=== PATIENT | male | born 1950 | race Caucasian/White ===

== ENCOUNTER → 2019-03-31 | Outpatient (CLI) | payer MEDICARE, OTHER ==
--- NOTE | 2019-04-02 07:44 | ECHOF ---
Referral Reason:I10 Essential hypertension; I27.81; Z99.81 MEASUREMENTS -------- HEIGHT: 175.3 cm WEIGHT: 77.1 kg BP: IVSd: 1.0 cm (0.6 - 1.1) LVIDd: 3.1 cm (3.9 - 5.3) LVPWd: 1.2 cm (0.6 - 1.1) IVSs: 1.3 cm LVIDs: 1.8 cm LVPWs: 1.5 cm LAESV Index (A-L): 12.86 ml/m Ao Diam: 3.5 cm (2.0 - 3.7) AV Cusp: 1.6 cm (1.5 - 2.6) LA Diam: 1.5 cm (2.7 - 3.8) MV EXCURSION: 10.325 mm (> 18.000) MV EF SLOPE: 61 mm/s (70 - 150) EPSS: 1.4 cm MV E Pierre: 0.79 m/s MV DecT: 148 ms MV A Pierre: 1.30 m/s MV E/A Ratio: 0.61 AV maxP.45 mmHg AV meanP.27 mmHg AR PHT: 269 ms RAP: 5.00 mmHg RVSP: 27.28 mmHg FINDINGS -------- Sinus rhythm. This was a technically adequate study. The left ventricular size is normal. There is mild concentric left ventricular hypertrophy. Overa ll left ventricular systolic function is low-normal with, an EF between 50 - 55 %. The right ventricle is normal in size. The left atrial size is normal. The right atrial size is normal. Interatrial and interventricular septum intact. Aortic valve is trileaflet and is mildly thickened. There is mild aortic stenosis present. Peak/m tonya gradient across the Aortic Valve is 15.45mmHg / 8.27mmHg. The mitral valve leaflets are mildly thickened. Mild mitral regurgitation is present. Mild tricuspid regurgitation present. The right ventricular systolic pressure, as measured by Doppl er, is 27.28mmHg. There is no pulmonic regurgitation present. The aortic root size is normal. Normal inferior vena cava with normal inspiratory collapse consistent with estimated right atrial pre ssure of 5 mmHg. There is no pericardial effusion. CONCLUSIONS -------- 1. Sinus rhythm. 2. This was a technically adequate study. 3. The left ventricular size is normal. 4. There is mild concentric left ventricular hypertrophy. 5. Overall left ventricular systolic function is low-normal with, an EF between 50 - 55 %. 6. The right ventricle is normal in size. 7. The left atrial size is normal. 8. The right atrial size is normal. 9. Interatrial and interventricular septum intact. 10. Aortic valve is trileaflet and is mildly thickened. 11. There is mild aortic stenosis present. 12. Peak/mean gradient across the Aortic Valve is 15.45mmHg / 8.27mmHg. 13. The mitral valve leaflets are mildly thickened. 14. Mild mitral regurgitation is present. 15. Mild tricuspid regurgitation present. 16. The right ventricular systolic pressure, as measured by Doppler, is 27.28mmHg. 17. There is no pulmonic regurgitation present. 18. The aortic root size is normal. 19. Normal inferior vena cava with normal inspiratory collapse consistent with estimated right atrial pressure of 5 mmHg. 20. There is no pericardial effusion. REMOTE SENSING RESEARCH SCIENTIST: Sylvia Pelayo RDCS
== END | disposition home or self-care (01) ==
LOC: RADECHMAIN 13:34
PROVIDERS: ATTEND Family Medicine
DX: I08.1 Rheumatic disorders of both mitral and tricuspid valves (principal); I11.9 Hypertensive heart disease without heart failure; I27.81 Cor pulmonale (chronic); Z99.81 Dependence on supplemental oxygen
CPT/HCPCS: 93306

== ENCOUNTER 2020-01-30 15:32 | Inpatient (IN) | payer MEDICARE, OTHER ==
[2020-01-30] MEDS ORDERED: ALBUTEROL NEBULIZED 2.5 MG/3 ML INHALATION STA (15:51)
[2020-01-30] MEDS ORDERED: IPRATROPIUM 0.5 MG/2.5 ML NEBU INHALATION STA (15:51)
[2020-01-30] MEDS ORDERED: MAGNESIUM SULFATE-D5W PMX 1 GM in DEXTROSE/WATER 1 100ML.BAG IVPB STA (15:51)
[2020-01-30] MEDS ORDERED: SODIUM CHLORIDE 0.9% 500 ML 500 ML IV STA (15:51)
[2020-01-30] MEDS ORDERED: methylPREDNISolone SOD SUCCI 125 MG/2 ML VIAL IV STA (15:51)
[2020-01-30] MEDS ORDERED: LEVOFLOXACIN 750MG-D5W PMX 750 MG in DEXTROSE/WATER 1 150ML.BAG IVPB STA (15:51)
--- NOTE | 2020-01-30 16:12 | XR ---
EXAMINATION TYPE: XR chest 1V DATE OF EXAM: 01/30/2020 COMPARISON: 01/12/2012 HISTORY: COPD and asthma TECHNIQUE: Single frontal view of the chest is obtained. FINDINGS: Left basilar airspace disease is new from the prior. Pulmonary hyperinflation is seen comp atible with underlying COPD. Patient is rotated shifting the mediastinum to the right. Diffuse osseou s demineralization is present. Chronic density at the right cardiophrenic angle may represent an epic ardial fat pad. IMPRESSION: Reticular left basilar opacity. Correlate for pneumonia.
[2020-01-30 16:21] LABS: Basophils % (A) 0 %; Eosinophils % (A) 0 %; HCT 48.4 % (39.0-53.0); HGB 15.9 gm/dL (13.0-17.5); Lymphocytes # (A) 1.6 k/uL (1.0-4.8); Lymphocytes % (A) 16 %; MCH 29.2 pg (25.0-35.0); MCHC 32.8 g/dL (31.0-37.0); Mean Platelet Volume 7.7; Monocytes # (A) 0.3 k/uL (0-1.0); Monocytes % (A) 3 %; Neutrophils % (A) 79 %; Platelet Count 205 k/uL (150-450); RBC 5.43 m/uL (4.30-5.90); RDW 12.8 % (11.5-15.5); WBC 10.1 k/uL (3.8-10.6)
[2020-01-30 16:23] LABS: ALT 32 U/L (4-49); AST 29 U/L (17-59); African American GFR (CKD) >90 (>60 ml/min/1.73 sqM); Albumin 4.4 g/dL (3.5-5.0); Alkaline Phosphatase 72 U/L (38-126); Anion Gap 7 mmol/L; Blood Urea Nitrogen 25 mg/dL (9-20); Chloride 90 mmol/L (98-107); Glucose 156 mg/dL (74-99); Magnesium 1.6 mg/dL (1.6-2.3); Non-African American GFR(CKD) >90 (>60 ml/min/1.73 sqM); Potassium 3.9 mmol/L (3.5-5.1); Sodium 137 mmol/L (137-145); Total Bilirubin 1.3 mg/dL (0.2-1.3); Total Protein 7.1 g/dL (6.3-8.2)
[2020-01-30 16:25] LABS: Partial Thromboplastin Time 24.2 sec (22.0-30.0)
--- NOTE | 2020-01-30 16:32 | ED ---
General Adult HPI - General Chief complaint: Shortness of Breath Stated complaint: low oxygen Time Seen by Provider: 01/30/20 15:35 Source: patient, RN notes reviewed, old records reviewed Mode of arrival: wheelchair Limitations: no limitations - History of Present Illness Initial comments: This is a 69-year-old male with past medical history significant for end-stage COPD. Patient states over the last week he's been having worsening difficulty breathing. Patient states he thinks she's had a fever but has not taken his temperature. Patient denies any chest pain. Patient states he is coughing but not coughing up much sputum production. Patient states he does not want to be intubated but he will try BiPAP. Patient denies any abdominal pain. Patient denies nausea vomiting. Patient denies any back pain. Patient denies headache patient denies numbness weakness. Patient denies any swelling in the legs or calf tenderness. - Related Data Allergies Allergy/AdvReac Type Severity Reaction Status Date / Time Penicillins Allergy Rash/Hives Verified 01/30/20 15:39 Review of Systems ROS Statement: Those systems with pertinent positive or pertinent negative responses have been documented in the HPI. ROS Other: All systems not noted in ROS Statement are negative. Past Medical History Past Medical History: Asthma, COPD History of Any Multi-Drug Resistant Organisms: None Reported Past Surgical History: Cholecystectomy Past Psychological History: No Psychological Hx Reported Smoking Status: Former smoker Past Alcohol Use History: None Reported Past Drug Use History: None Reported General Exam - General Exam Comments Initial Comments: GENERAL: Patient is well-developed and well-nourished. Patient is nontoxic and well- hydrated and is in no acute distress. Patient's oxygen was in the low 80s when he first arrived ENT: Neck is soft and supple. No significant lymphadenopathy is noted. Oropharynx is clear. Moist mucous membranes. Neck has full range of motion without eliciting any pain. EYES: The sclera were anicteric and conjunctiva were pink and moist. Extraocular movements were intact and pupils were equal round and reactive to light. Eyelids were unremarkable. PULMONARY: Patient is wheezing diffusely and has very poor air movement CARDIOVASCULAR: There is a regular rate and rhythm without any murmurs gallops or rubs. ABDOMEN: Soft and nontender with normal bowel sounds. SKIN: Skin is clear with no lesions or rashes and otherwise unremarkable. NEUROLOGIC: Patient is alert and oriented x3. Cranial nerves II through XII are grossly intact. Motor and sensory are also intact. Normal speech, volume and content. Symmetrical smile. MUSCULOSKELETAL: Normal extremities with adequate strength and full range of motion. No lower e xtremity swelling or edema. No calf tenderness. LYMPHATICS: No significant lymphadenopathy is noted PSYCHIATRIC: Normal psychiatric evaluation. Limitations: no limitations Course Vital Signs 01/30/20 01/30/20 01/30/20 15:33 15:47 15:49 Temperature 99.5 F 98.3 F Pulse Rate 109 H Respiratory 30 H 22 Rate Blood Pressure 154/70 O2 Sat by Pulse 75 L 89 L Oximetry 01/30/20 01/30/20 01/30/20 15:52 16:00 16:31 Temperature Pulse Rate 112 H 105 H Respiratory Rate Blood Pressure O2 Sat by Pulse 95 Oximetry Medical Decision Making - Medical Decision Making EKG shows sinus tachycardia 114 bpm MN interval 142 QRS is 76 QT interval 324 QTC is 446 per patient's EKG shows no ST segment elevation or depression. Chest x-ray shows no acute abnormality. Patient did receive Levaquin in the emergency department prophylactically. Patient got 3 breathing treatments steroids in the emergency department as well as placed on BiPAP. I went back into reevaluate the patient he was doing considerably better his oxygenation was between 9495%. - Lab Data Result diagrams: 01/30/20 15:57 01/30/20 15:57 Lab Results 01/30/20 01/30/20 01/30/20 Range/Units 15:57 15:57 15:57 WBC 10.1 (3.8-10.6) k/uL RBC 5.43 (4.30-5.90) m/uL Hgb 15.9 (13.0-17.5) gm/dL Hct 48.4 (39.0-53.0) % MCV 89.0 (80.0-100.0) fL MCH 29.2 (25.0-35.0) pg MCHC 32.8 (31.0-37.0) g/dL RDW 12.8 (11.5-15.5) % Plt Count 205 (150-450) k/uL Neutrophils % 79 % Lymphocytes % 16 % Monocytes % 3 % Eosinophils % 0 % Basophils % 0 % Neutrophils # 8.0 H (1.3-7.7) k/uL Lymphocytes # 1.6 (1.0-4.8) k/uL Monocytes # 0.3 (0-1.0) k/uL Eosinophils # 0.0 (0-0.7) k/uL Basophils # 0.0 (0-0.2) k/uL PT 10.0 (9.0-12.0) sec INR 1.0 (<1.2) APTT 24.2 (22.0-30.0) sec Sample Site ABG pH (7.35-7.45) ABG pCO2 (35-45) mmHg ABG pO2 (83-108) mmHg ABG HCO3 (21-25) mmol/L ABG Total CO2 (19-24) mmol/L ABG O2 Saturation (94-97) % ABG Base Excess mmol/L Zohaib Test FiO2 % Sodium 137 (137-145) mmol/L Potassium 3.9 (3.5-5.1) mmol/L Chloride 90 L (98-107) mmol/L Carbon Dioxide 40 H (22-30) mmol/L Anion Gap 7 mmol/L BUN 25 H (9-20) mg/dL Creatinine 0.78 (0.66-1.25) mg/dL Est GFR (CKD-EPI)AfAm >90 (>60 ml/min/1.73 sqM) Est GFR (CKD-EPI)NonAf >90 (>60 ml/min/1.73 sqM) Glucose 156 H (74-99) mg/dL Plasma Lactic Acid Gonzalo (0.7-2.0) mmol/L Calcium 9.0 (8.4-10.2) mg/dL Magnesium 1.6 (1.6-2.3) mg/dL Total Bilirubin 1.3 (0.2-1.3) mg/dL AST 29 (17-59) U/L ALT 32 (4-49) U/L Alkaline Phosphatase 72 (38-126) U/L Troponin I (0.000-0.034) ng/mL Total Protein 7.1 (6.3-8.2) g/dL Albumin 4.4 (3.5-5.0) g/dL Influenza Type A RNA (Not Detectd) Influenza Type B (PCR) (Not Detectd) 01/30/20 01/30/20 01/30/20 Range/Units 15:57 15:57 15:57 WBC (3.8-10.6) k/uL RBC (4.30-5.90) m/uL Hgb (13.0-17.5) gm/dL Hct (39.0-53.0) % MCV (80.0-100.0) fL MCH (25.0-35.0) pg MCHC (31.0-37.0) g/dL RDW (11.5-15.5) % Plt Count (150-450) k/uL Neutrophils % % Lymphocytes % % Monocytes % % Eosinophils % % Basophils % % Neutrophils # (1.3-7.7) k/uL Lymphocytes # (1.0-4.8) k/uL Monocytes # (0-1.0) k/uL Eosinophils # (0-0.7) k/uL Basophils # (0-0.2) k/uL PT (9.0-12.0) sec INR (<1.2) APTT (22.0-30.0) sec Sample Site ABG pH (7.35-7.45) ABG pCO2 (35-45) mmHg ABG pO2 (83-108) mmHg ABG HCO3 (21-25) mmol/L ABG Total CO2 (19-24) mmol/L ABG O2 Saturation (94-97) % ABG Base Excess mmol/L Zohaib Test FiO2 % Sodium (137-145) mmol/L Potassium (3.5-5.1) mmol/L Chloride (98-107) mmol/L Carbon Dioxide (22-30) mmol/L Anion Gap mmol/L BUN (9-20) mg/dL Creatinine (0.66-1.25) mg/dL Est GFR (CKD-EPI)AfAm (>60 ml/min/1.73 sqM) Est GFR (CKD-EPI)NonAf (>60 ml/min/1.73 sqM) Glucose (74-99) mg/dL Plasma Lactic Acid Gonzalo 1.3 (0.7-2.0) mmol/L Calcium (8.4-10.2) mg/dL Magnesium (1.6-2.3) mg/dL Total Bilirubin (0.2-1.3) mg/dL AST (17-59) U/L ALT (4-49) U/L Alkaline Phosphatase (38-126) U/L Troponin I <0.012 (0.000-0.034) ng/mL Total Protein (6.3-8.2) g/dL Albumin (3.5-5.0) g/dL Influenza Type A RNA Not Detected (Not Detectd) Influenza Type B (PCR) Not Detected (Not Detectd) 01/30/20 Range/Units 16:46 WBC (3.8-10.6) k/uL RBC (4.30-5.90) m/uL Hgb (13.0-17.5) gm/dL Hct (39.0-53.0) % MCV (80.0-100.0) fL MCH (25.0-35.0) pg MCHC (31.0-37.0) g/dL RDW (11.5-15.5) % Plt Count (150-450) k/uL Neutrophils % % Lymphocytes % % Monocytes % % Eosinophils % % Basophils % % Neutrophils # (1.3-7.7) k/uL Lymphocytes # (1.0-4.8) k/uL Monocytes # (0-1.0) k/uL Eosinophils # (0-0.7) k/uL Basophils # (0-0.2) k/uL PT (9.0-12.0) sec INR (<1.2) APTT (22.0-30.0) sec Sample Site Left Radial ABG pH 7.32 L (7.35-7.45) ABG pCO2 82 H* (35-45) mmHg ABG pO2 102 (83-108) mmHg ABG HCO3 42 H* (21-25) mmol/L ABG Total CO2 45 H (19-24) mmol/L ABG O2 Saturation 97.6 H (94-97) % ABG Base Excess 16.4 mmol/L Zohaib Test Yes FiO2 40 % Sodium (137-145) mmol/L Potassium (3.5-5.1) mmol/L Chloride (98-107) mmol/L Carbon Dioxide (22-30) mmol/L Anion Gap mmol/L BUN (9-20) mg/dL Creatinine (0.66-1.25) mg/dL Est GFR (CKD-EPI)AfAm (>60 ml/min/1.73 sqM) Est GFR (CKD-EPI)NonAf (>60 ml/min/1.73 sqM) Glucose (74-99) mg/dL Plasma Lactic Acid Gonzalo (0.7-2.0) mmol/L Calcium (8.4-10.2) mg/dL Magnesium (1.6-2.3) mg/dL Total Bilirubin (0.2-1.3) mg/dL AST (17-59) U/L ALT (4-49) U/L Alkaline Phosphatase (38-126) U/L Troponin I (0.000-0.034) ng/mL Total Protein (6.3-8.2) g/dL Albumin (3.5-5.0) g/dL Influenza Type A RNA (Not Detectd) Influenza Type B (PCR) (Not Detectd) Critical Care Time Critical Care Time: Yes Total Critical Care Time: 35 Disposition Clinical Impression: Acute exacerbation of chronic obstructive pulmonary disease Disposition: ADMITTED IP TO THIS HOSP Referrals: Brayan Garcia DO [Primary Care Provider] - 1-2 days Time of Disposition: 17:57
[2020-01-30 16:34] LABS: Carbon Dioxide 40 mmol/L (22-30)
[2020-01-30 16:51] LABS: ABG Base Excess 16.4 mmol/L; ABG Oxygen Saturation 97.6 % (94-97); ABG PH 7.32 (7.35-7.45); ABG PO2 102 mmHg (83-108); ABG TCO2 45 mmol/L (19-24); Allen Test Performed? Yes
[2020-01-30 16:54] LABS: ABG HCO3 42 mmol/L (21-25); ABG PCO2 82 mmHg (35-45)
[2020-01-30] MEDS: methylPREDNISolone SOD SUCCI 125 MG/2 ML VIAL IV SCH (18:32)
[2020-01-30] MEDS ORDERED: IPRATROPIUM 0.5 MG/2.5 ML NEBU INHALATION SCH (20:00)
[2020-01-30] MEDS: IPRATROPIUM-ALBUTEROL 3 ML NEB INHALATION SCH (20:12)
[2020-01-30] MEDS: BUDESONIDE 0.5 MG/2 ML NEBU INHALATION SCH (20:12)
[2020-01-31] MEDS: methylPREDNISolone SOD SUCCI 125 MG/2 ML VIAL IV SCH ×4 (00:29→17:44)
[2020-01-31 05:32] LABS: Appearance,Urine Clear (Clear); Bilirubin,Urine Negative (Negative); Blood,Urine Negative (Negative); Color,Urine Yellow; Glucose,Urine (UA) Negative (Negative); Hyaline Casts,Urine 1 /lpf (0-2); Ketones,Urine Trace (Negative); Leukocyte Esterase,Urine Negative (Negative); Mucus,Urine Moderate /hpf; Nitrite,Urine Negative (Negative); PH, Urine 5.5 (5.0-8.0); Protein,Urine 1+ (Negative); Specific Gravity,Urine 1.026 (1.001-1.035); Squamous Epithelial Cell,Urine <1 /hpf (0-4); Urobilinogen,Urine <2.0 mg/dL (<2.0); WBC,Urine 1 /hpf (0-5)
[2020-01-31] MEDS: IPRATROPIUM-ALBUTEROL 3 ML NEB INHALATION SCH ×4 (08:07→19:31)
[2020-01-31] MEDS: BUDESONIDE 0.5 MG/2 ML NEBU INHALATION SCH ×2 (08:07→19:31)
--- NOTE | 2020-01-31 10:42 | P.HPIM ---
History of Present Illness This is a pleasant 69 years old male with past medical history of COPD, former smoker. He is patient of Dr. Garcia. Patient presents with respiratory distress and dyspnea associated with cough associated with yellow Phlegm since Wednesday about 4-5 days ago, he went to see his PCP we'll give him some therapy and he call him on Wednesday we'll start him on Tamiflu and steroids/prednisone. However over the last 1-2 days he kept getting worse so he decided to come to the hospital Patient is not steroid dependent. He denies chest pain. His no smoking currently. He had loose bowel movement yesterday but not today, no abdominal pain or nausea vomiting. No urinary complaints, no headache or weakness or confusion. Patient is afebrile He follows up with Dr. Watts as an outpatient for pulmonary service Patient blood pressure 136/73, heart rate 96, he was tachycardic on admission with heart rate of 109 and a breathing rate of 30 patient is afebrile and he was placed on BiPAP, his oxygen saturation was 75-89%, now is 97% while on BiPAP and oxygen therapy. Labs show an unremarkable CBC, INR, electrolytes and creatinine , liver enzymes, troponin is negative, UA is no suspicious of infection, was that is negative, carbon dioxide is elevated at 40. ABG showing pH of 7.3, pCO2 of 82 and pO2 of 102 EKG showing sinus tachycardia at [address]-T changes and QTC is 446. Chest x-ray showing left basilar opacity suspicious for pneumonia On admission patient was started on Levaquin and Solu-Medrol On admission he was on Tamiflu and prednisone as an outpatient Review of Systems CONSTITUTIONAL: No fever, no malaise, no fatigue. HEENT: No recent visual problems or hearing problems. Denied any sore throat. CARDIOVASCULAR: No orthopnea, PND, no palpitations, no syncope. PULMONARY: no hemoptysis. GASTROINTESTINAL: No diarrhea, no nausea, no vomiting, no abdominal pain. Normoactive bowel sounds. NEUROLOGICAL: No headaches, no weakness, no numbness. HEMATOLOGICAL: Denies any bleeding or petechiae. GENITOURINARY: Denies any burning micturition, frequency, or urgency. MUSCULOSKELETAL/RHEUMATOLOGICAL: Denies any joint pain, swelling, or any muscle pain. ENDOCRINE: Denies any polyuria or polydipsia. Past Medical History Past Medical History: Asthma, COPD History of Any Multi-Drug Resistant Organisms: None Reported Past Surgical History: Cholecystectomy Past Psychological History: No Psychological Hx Reported Smoking Status: Former smoker Past Alcohol Use History: None Reported Past Drug Use History: None Reported Medications and Allergies Home Medications Medication Instructions Recorded Confirmed Type ALPRAZolam [Xanax] 0.5 mg PO TID PRN 01/30/20 01/30/20 History Albuterol Sulfate [Ventolin HFA] 2 puff INHALATION RT-Q6H 01/30/20 01/30/20 History Aspirin EC [Ecotrin Low Dose] 81 mg PO DAILY 01/30/20 01/30/20 History Budesonide [Pulmicort] 0.5 mg INHALATION RT-BID PRN 01/30/20 01/30/20 History Budesonide/Formoterol Fumarate 2 puff INHALATION RT-BID 01/30/20 01/30/20 History [Symbicort 160-4.5 Mcg Inhaler] Cetirizine HCl 10 mg PO DAILY 01/30/20 01/30/20 History Furosemide [Lasix] 20 mg PO SUMOWEFR 01/30/20 01/30/20 History Montelukast [Singulair] 10 mg PO HS 01/30/20 01/30/20 History Omeprazole 20 mg PO HS 01/30/20 01/30/20 History Omeprazole [PriLOSEC] 40 mg PO DAILY 01/30/20 01/30/20 History Oseltamivir [Tamiflu] 75 mg PO BID 01/30/20 01/30/20 History amLODIPine [Norvasc] 10 mg PO DAILY 01/30/20 01/30/20 History predniSONE See Taper PO DAILY 01/30/20 01/30/20 History Allergies Allergy/AdvReac Type Severity Reaction Status Date / Time Penicillins Allergy Rash/Hives Verified 01/30/20 19:16 Physical Exam Vitals: Vital Signs Temp Pulse Pulse Resp BP BP Pulse Ox 01/31/20 08:20 92 01/31/20 08:11 90 95 01/31/20 04:00 96 16 136/73 96 01/30/20 22:12 100 18 137/90 01/30/20 20:49 104 H 01/30/20 20:12 106 H 01/30/20 18:35 99 18 135/94 97 01/30/20 18:00 139/96 01/30/20 17:45 142/93 01/30/20 17:30 146/90 01/30/20 16:31 105 H 01/30/20 16:00 112 H 01/30/20 15:52 95 01/30/20 15:49 89 L 01/30/20 15:47 98.3 F 22 01/30/20 15:33 99.5 F 109 H 30 H 154/70 75 L Intake and Output 01/30/20 01/31/20 01/31/20 22:59 06:59 14:59 Output Total 400 Balance -400 Output: Urine 400 Other: # Voids 0 Weight 80.739 kg 77.6 kg GENERAL: The patient is alert and oriented x3, not in any acute distress. Well developed, well nourished. HEENT: Pupils are round and equally reacting to light. EOMI. No scleral icterus. No conjunctival pallor. Normocephalic, atraumatic. No pharyngeal erythema. No thyromegaly. CARDIOVASCULAR: S1 and S2 present. No murmurs, rubs, or gallops. -PULMONARY: Chest is clear to auscultation, bilateral expiratory wheezing and decreased air entry ABDOMEN: Soft, nontender, nondistended, normoactive bowel sounds. No palpable organomegaly. MUSCULOSKELETAL: No joint swelling or deformity. EXTREMITIES: No cyanosis, clubbing, or pedal edema. NEUROLOGICAL: Gross neurological examination did not reveal any focal deficits. SKIN: No rashes. No petechiae Results CBC & Chem 7: 01/30/20 15:57 01/30/20 15:57 Labs: Abnormal Lab Results - Last 24 Hours (Table) 01/30/20 01/30/20 01/30/20 Range/Units 15:57 15:57 16:46 Neutrophils # 8.0 H (1.3-7.7) k/uL ABG pH 7.32 L (7.35-7.45) ABG pCO2 82 H* (35-45) mmHg ABG HCO3 42 H* (21-25) mmol/L ABG Total CO2 45 H (19-24) mmol/L ABG O2 Saturation 97.6 H (94-97) % Chloride 90 L (98-107) mmol/L Carbon Dioxide 40 H (22-30) mmol/L BUN 25 H (9-20) mg/dL Glucose 156 H (74-99) mg/dL Urine Protein (Negative) Urine Ketones (Negative) Urine Mucus (None) /hpf 01/31/20 Range/Units 05:00 Neutrophils # (1.3-7.7) k/uL ABG pH (7.35-7.45) ABG pCO2 (35-45) mmHg ABG HCO3 (21-25) mmol/L ABG Total CO2 (19-24) mmol/L ABG O2 Saturation (94-97) % Chloride (98-107) mmol/L Carbon Dioxide (22-30) mmol/L BUN (9-20) mg/dL Glucose (74-99) mg/dL Urine Protein 1+ H (Negative) Urine Ketones Trace H (Negative) Urine Mucus Moderate H (None) /hpf Assessment and Plan Assessment: Acute hypoxic hypercapnic respiratory failure Acute COPD exacerbation Left lower lobe pneumonia Acute respiratory acidosis Hypertension Plan: This is a pleasant 69 years old male who presents with COPD, respiratory failure and pneumonia. Continue with BiPAP, continue with antibiotic and steroids, bronchodilators and oxygen therapy. Follow-up culture results. Pulmonary consult Labs and medication were reviewed.. Continue same treatment. Continue with symptomatic treatment. Resume home medication. Monitor lytes and vitals. DVT and GI prophylaxis. Further recommendations of the clinical course of the patient DVT prophylaxis: Subcutaneous heparin GI Prophylaxis: Pepcid CODE STATUS: Discussed with patient he confirmed to me he wants to be DO NOT INTUBATE and DO NOT RESUSCITATE, he does not want intubation if his breathing stops, I explained for the patient and he is aware at that point if he needs us intubation and he does not want it then the next step is hospice care and let him type easily and he agrees to these, also he told me that his family are aware of his wishes and we can talk to his about this if needed. Based upon my evaluation patient has capacity to make medical decision Prognosis is guarded
[2020-01-31] MEDS: FUROSEMIDE 20 MG TAB PO SCH (12:41)
[2020-01-31] MEDS: HEPARIN SODIUM,PORCINE 5,000 UNIT/ML 1 ML VIAL SQ SCH ×2 (12:42→21:55)
[2020-01-31] MEDS ORDERED: LEVOFLOXACIN 500 MG TAB PO SCH (17:00)
[2020-01-31] MEDS: LEVOFLOXACIN 750MG-D5W PMX 750 MG in DEXTROSE/WATER 1 150ML.BAG IVPB SCH (17:44)
[2020-01-31] MEDS: FAMOTIDINE 20 MG/2 ML VIAL IV SCH (17:48)
--- NOTE | 2020-01-31 21:36 | CONS ---
CONSULTATION Alberto Robles is a 69-year-old male who presented to the ED with increasing shortness of breath of about 1-2 weeks duration. He was being treated as an outpatient with steroids and subsequently started to worsen. He was given Tamiflu and steroids and continued to worsen. He was seen in the ER and was found to be hypercarbic with hypoxemia and subsequently was admitted for further evaluation and management. He was placed on BiPAP and admitted to the floor. He requested no intubation. Pulmonary consultation was placed this morning. I am his mulling machine operator in the outpatient setting that was caring for him as well. He denied any clear fever or chills. PAST MEDICAL HISTORY: Positive for severe allergic asthma with COPD that is end-stage. History of cholecystectomy. SOCIAL HISTORY: Patient used to be a heavy smoker in the past. Does not smoke at this time, and he used to work in security. FAMILY HISTORY: Noncontributory. MEDICATIONS: Prior to admission were omeprazole, Singulair, Lasix, Tamiflu, cetirizine, Symbicort, Pulmicort, Ventolin HFA, prednisone, Norvasc, Ecotrin, Xanax, and Prilosec. PHYSICAL EXAMINATION: Respiratory rate is 19, pulse rate 103, temperature 98.6, blood pressure 137/80. HEENT reveals pupils are equal. No jugular venous distention. Chest with decreased breath sounds with prolonged exhalation. Expiratory wheeze. Chest is hyperinflated. Cardiovascular system is S1, S2. Abdomen is soft. There is no pedal edema. X-RAY: Chest x-ray shows a left lower zone patchy infiltrate. IMPRESSION: At this time: 1. Severe asthma with chronic obstructive pulmonary disease with acute exacerbation. 2. Acute on chronic respiratory failure. Keep the patient on IV and aerosolized steroids along with montelukast. Keep him on GI/DVT prophylaxis. Continue Levaquin. Increase activity level. Keep him on supplemental oxygen and use BiPAP p.r.n. only. Depending on how he does, we should make further changes to his care. I would like to thank you for allowing me the privilege of participating in his care. MMODL / IJN: [id number] /
[2020-01-31] MEDS: MONTELUKAST 10 MG TAB PO SCH (21:55)
[2020-02-01] MEDS: IPRATROPIUM-ALBUTEROL 3 ML NEB INHALATION SCH ×5 (00:06→19:33)
[2020-02-01] MEDS: methylPREDNISolone SOD SUCCI 125 MG/2 ML VIAL IV SCH ×3 (00:44→19:11)
[2020-02-01] MEDS: IPRATROPIUM-ALBUTEROL 3 ML NEB INHALATION PRN (04:14)
[2020-02-01] MEDS: ASPIRIN 81 MG PO SCH (08:39)
[2020-02-01] MEDS: amLODIPine 10 MG TAB PO SCH (08:39)
[2020-02-01] MEDS: FAMOTIDINE 20 MG/2 ML VIAL IV SCH (08:39)
[2020-02-01] MEDS: HEPARIN SODIUM,PORCINE 5,000 UNIT/ML 1 ML VIAL SQ SCH ×2 (08:40→21:01)
[2020-02-01] MEDS: BUDESONIDE 0.5 MG/2 ML NEBU INHALATION SCH ×2 (09:11→19:33)
--- NOTE | 2020-02-01 13:17 | P.PN ---
Subjective patient with advanced COPD his admitted for presumed exacerbation patient only uses 2 L of vodka presently on 4 L of oxygen. We'll try to wean it off. Patient is still short of breath 107 and wheezing no significant air entry into bilateral lung nielsen patient on systemic steroids which will cut it down to 40 3 times a day, influenza testing was negative. Patient does feel little bit better today patient is on BiPAP at this time Constitutional: Denied any fatigue denied any fever. Cardio vascular: denied any chest pain, palpitations Gastrointestinal denied any nausea vomiting Pulmonary: as mentioned in HPI Neurologic denied any new focal deficits All inpatient medications were reviewed and appropriate changes in these medications as dictated in the interval history and assessment and plan. Objective - Vital Signs Vital signs: Vital Signs Temp 98.2 F 02/01/20 08:20 Pulse 98 02/01/20 12:26 Resp 24 02/01/20 08:20 BP 158/92 02/01/20 08:20 Pulse Ox 90 L 02/01/20 08:20 Intake & Output 01/31/20 02/01/20 02/01/20 18:59 06:59 18:59 Intake Total 100 540 180 Output Total 600 1 Balance 100 -60 179 Weight 77.2 kg Intake: Oral 100 540 180 Output: Urine 600 Stool 1 Other: # Voids 0 # Bowel Movements 0 - Exam GENERAL: The patient is alert and oriented x3, not in any acute distress. Well developed, well nourished. HEENT: Pupils are round and equally reacting to light. EOMI. No scleral icterus. No conjunctival pallor. Normocephalic, atraumatic. No pharyngeal erythema. No thyromegaly. CARDIOVASCULAR: S1 and S2 present. No murmurs, rubs, or gallops. -PULMONARY: Chest is clear to auscultation,no wheezing and significantly decreased air entry ABDOMEN: Soft, nontender, nondistended, normoactive bowel sounds. No palpable organomegaly. MUSCULOSKELETAL: No joint swelling or deformity. EXTREMITIES: No cyanosis, clubbing, or pedal edema. NEUROLOGICAL: Gross neurological examination did not reveal any focal deficits. SKIN: No rashes. No petechiae - Labs CBC & Chem 7: 01/30/20 15:57 01/30/20 15:57 Labs: Microbiology - Last 24 Hours (Table) 01/31/20 14:30 Gram Stain - Preliminary Sputum Sputum Culture - Preliminary 01/30/20 16:23 Blood Culture - Preliminary Blood No Growth after 24 hours Assessment and Plan Plan: -acute on chronic Respiratory failure second to COPD exacerbation: Continue with stroke stars and inhalational treatments.patient has advanced COPD. -Tracheobronchitis possibility of pneumonia is low: Patient is on levofloxacin which will be continued DVT prophylaxis: Subcutaneous heparin GI Prophylaxis: Pepcid
[2020-02-01] MEDS ORDERED: methylPREDNISolone SOD SUCCI 40 MG/ML 1 ML VIAL IV SCH (16:00)
--- NOTE | 2020-02-01 16:28 | PN ---
PROGRESS NOTE DATE OF SERVICE: 02/01/2020 He is more short of breath today than yesterday, but overall seems to be doing better compared to when he came in. On physical examination, his blood pressure is 165/92, respiratory rate 20, pulse rate of 104, temperature 98.5, O2 saturation on 4 liters by nasal cannula is 90%. HEENT is unremarkable. Chest with expiratory wheeze. Cardiovascular system reveals S1 and S2. Abdomen is soft. There is no pedal edema. I IMPRESSION: Impression at this time is: 1. Severe asthma with chronic obstructive pulmonary disease with acute exacerbation. 2. End-stage chronic obstructive pulmonary disease. Keep his intravenous steroid at 60 mg intravenous push q. 6 for another 24 hours until his respiratory status is stable and then consider tapering it slowly. BJORNL / SUSANN: [id number] /
[2020-02-01] MEDS: LEVOFLOXACIN 750MG-D5W PMX 750 MG in DEXTROSE/WATER 1 150ML.BAG IVPB SCH (19:12)
[2020-02-01] MEDS: MONTELUKAST 10 MG TAB PO SCH (21:01)
[2020-02-01] MEDS: FAMOTIDINE 20 MG TAB PO SCH (21:01)
[2020-02-02] MEDS: methylPREDNISolone SOD SUCCI 125 MG/2 ML VIAL IV SCH ×5 (00:17→22:00)
[2020-02-02] MEDS: IPRATROPIUM-ALBUTEROL 3 ML NEB INHALATION PRN (00:34)
[2020-02-02 07:50] LABS: African American GFR (CKD) >90 (>60 ml/min/1.73 sqM); Blood Urea Nitrogen 35 mg/dL (9-20); Calcium 8.7 mg/dL (8.4-10.2); Chloride 91 mmol/L (98-107); Glucose 141 mg/dL (74-99); Non-African American GFR(CKD) >90 (>60 ml/min/1.73 sqM); Potassium 4.5 mmol/L (3.5-5.1); Sodium 140 mmol/L (137-145)
[2020-02-02 07:51] LABS: HCT 46.4 % (39.0-53.0); MCH 29.4 pg (25.0-35.0); MCHC 32.3 g/dL (31.0-37.0); Mean Platelet Volume 7.8; Platelet Count 243 k/uL (150-450); RDW 12.6 % (11.5-15.5); WBC 15.7 k/uL (3.8-10.6)
[2020-02-02 07:57] LABS: Anion Gap 8 mmol/L
[2020-02-02 08:02] LABS: Carbon Dioxide 41 mmol/L (22-30)
[2020-02-02] MEDS: BUDESONIDE 0.5 MG/2 ML NEBU INHALATION SCH ×2 (08:38→19:36)
[2020-02-02] MEDS: IPRATROPIUM-ALBUTEROL 3 ML NEB INHALATION SCH ×4 (08:38→19:36)
[2020-02-02] MEDS: ASPIRIN 81 MG PO SCH (09:29)
[2020-02-02] MEDS: FUROSEMIDE 20 MG TAB PO SCH (09:29)
[2020-02-02] MEDS: amLODIPine 10 MG TAB PO SCH (09:29)
[2020-02-02] MEDS: FAMOTIDINE 20 MG TAB PO SCH ×2 (09:29→22:00)
[2020-02-02] MEDS: HEPARIN SODIUM,PORCINE 5,000 UNIT/ML 1 ML VIAL SQ SCH ×2 (09:29→22:01)
--- NOTE | 2020-02-02 12:47 | P.PN ---
Subjective patient with advanced COPD his admitted for presumed exacerbation patient only uses 2 L of vodka presently on 4 L of oxygen. We'll try to wean it off. Patient is still short of breath 107 and wheezing no significant air entry into bilateral lung nielsen patient on systemic steroids which will cut it down to 40 3 times a day, influenza testing was negative. Patient does feel little bit better today patient is on BiPAP at this time 02/02/2020 Patient is still requiring BiPAP on and off but his respiratory status did improve patient has some air entry today and bilateral lung nielsen. Constitutional: Denied any fatigue denied any fever. Cardio vascular: denied any chest pain, palpitations Gastrointestinal denied any nausea vomiting Pulmonary: as mentioned in HPI Neurologic denied any new focal deficits All inpatient medications were reviewed and appropriate changes in these medications as dictated in the interval history and assessment and plan. Objective - Vital Signs Vital signs: Vital Signs Temp 97.9 F 02/02/20 08:00 Pulse 104 H 02/02/20 11:47 Resp 24 02/02/20 08:00 BP 155/87 02/02/20 08:00 Pulse Ox 93 L 02/02/20 08:41 Intake & Output 02/01/20 02/02/20 02/02/20 18:59 06:59 18:59 Intake Total 840 120 Output Total 1 2003 Balance 839 -2003 120 Weight 76.4 kg Intake: Oral 840 120 Output: Urine 2000 Stool 1 4 Other: Voiding Method Urinal # Voids 3 - Exam GENERAL: The patient is alert and oriented x3, not in any acute distress. Well developed, well nourished. HEENT: Pupils are round and equally reacting to light. EOMI. No scleral icterus. No conjunctival pallor. Normocephalic, atraumatic. No pharyngeal erythema. No thyromegaly. CARDIOVASCULAR: S1 and S2 present. No murmurs, rubs, or gallops. -PULMONARY: Chest is clear to auscultation,no wheezing and significantly decreased air entry ABDOMEN: Soft, nontender, nondistended, normoactive bowel sounds. No palpable organomegaly. MUSCULOSKELETAL: No joint swelling or deformity. EXTREMITIES: No cyanosis, clubbing, or pedal edema. NEUROLOGICAL: Gross neurological examination did not reveal any focal deficits. SKIN: No rashes. No petechiae - Labs CBC & Chem 7: 02/02/20 06:27 02/02/20 06:27 Labs: Abnormal Lab Results - Last 24 Hours (Table) 02/02/20 02/02/20 Range/Units 06:27 06:27 WBC 15.7 H (3.8-10.6) k/uL Chloride 91 L (98-107) mmol/L Carbon Dioxide 41 H* (22-30) mmol/L BUN 35 H (9-20) mg/dL Glucose 141 H (74-99) mg/dL Microbiology - Last 24 Hours (Table) 01/30/20 16:23 Blood Culture - Preliminary Blood No Growth after 48 hours Assessment and Plan Plan: -acute on chronic Respiratory failure second to COPD exacerbation: Continue with stroke stars and inhalational treatments.patient has advanced COPD. -Tracheobronchitis possibility of pneumonia is low: Patient is on levofloxacin which will be continued DVT prophylaxis: Subcutaneous heparin GI Prophylaxis: Pepcid
[2020-02-02 16:52] LABS: Glucose,Whole Blood 180 mg/dL (75-99)
[2020-02-02] MEDS: INSULIN ASPART (NovoLOG) 100 UNIT/ML VIAL SQ SCH ×2 (17:01→22:01)
[2020-02-02] MEDS: LEVOFLOXACIN 750 MG TAB PO SCH (17:01)
--- NOTE | 2020-02-02 19:44 | P.PN ---
Subjective Progress Note Date: 02/02/20 Principal diagnosis: Acute on chronic hypoxic respiratory failure, altered mental status/metabolic encephalopathy, acute COPD exacerbation, tracheobronchitis, 02/02/2020, Patient is a 69-year-old male seen eval reexamined today patient has been on BiPAP each night and when necessary during the daytime setting for 15/5 with 40% oxygen denies any chest pain is still short of breath on minimal activity and exertion, labs reviewed medications reviewed, admitted chest x-ray positive for left basilar opacity possible pneumonia patient currently on antibiotics will get a follow-up chest x-ray This is a pleasant 69 years old male with past medical history of COPD, former smoker. He is patient of Dr. Garcia. Patient presents with respiratory distress and dyspnea associated with cough associated with yellow Phlegm since Wednesday about 4-5 days ago, he went to see his PCP we'll give him some therapy and he call him on Wednesday we'll start him on Tamiflu and steroids/prednisone. However over the last 1-2 days he kept getting worse so he decided to come to the hospital Patient is not steroid dependent. He denies chest pain. His no smoking currently. He had loose bowel movement yesterday but not today, no abdominal pain or nausea vomiting. No urinary complaints, no headache or weakness or confusion. Patient is afebrile Objective - Vital Signs Vital signs: Vital Signs Temp 97.9 F 02/02/20 16:00 Pulse 104 H 02/02/20 16:00 Resp 22 02/02/20 16:00 BP 159/94 02/02/20 16:00 Pulse Ox 92 L 02/02/20 16:00 Intake & Output 02/02/20 02/02/20 02/03/20 06:59 18:59 06:59 Intake Total 120 Output Total 2003 400 Balance -2003 -280 Weight 76.4 kg Intake: Oral 120 Output: Urine 1999 400 Stool 4 Other: Voiding Method Urinal # Voids 3 - Exam GENERAL: The patient is alert and oriented x3, not in any acute distress. Well developed, well nourished. HEENT: Pupils are round and equally reacting to light. EOMI. No scleral icterus. No conjunctival pallor. Normocephalic, atraumatic. No pharyngeal erythema. No thyromegaly. CARDIOVASCULAR: S1 and S2 present. No murmurs, rubs, or gallops. -PULMONARY: Chest is clear to auscultation,no wheezing and significantly decreased air entry ABDOMEN: Soft, nontender, nondistended, normoactive bowel sounds. No palpable organomegaly. MUSCULOSKELETAL: No joint swelling or deformity. EXTREMITIES: No cyanosis, clubbing, or pedal edema. NEUROLOGICAL: Gross neurological examination did not reveal any focal deficits. SKIN: No rashes. No petechiae - Labs CBC & Chem 7: 02/02/20 06:27 02/02/20 06:27 Labs: Abnormal Lab Results - Last 24 Hours (Table) 02/02/20 02/02/20 02/02/20 Range/Units 06:27 06:27 16:50 WBC 15.7 H (3.8-10.6) k/uL Chloride 91 L (98-107) mmol/L Carbon Dioxide 41 H* (22-30) mmol/L BUN 35 H (9-20) mg/dL Glucose 141 H (74-99) mg/dL POC Glucose (mg/dL) 180 H (75-99) mg/dL Microbiology - Last 24 Hours (Table) 01/30/20 16:23 Blood Culture - Preliminary Blood No Growth after 72 hours 01/31/20 14:30 Gram Stain - Final Sputum Sputum Culture - Final Assessment and Plan Assessment: Acute on chronic hypoxic and hypercapnic respiratory failure Acute COPD exacerbation Left lower lobe pneumonia Plan: Continue BiPAP each night and when necessary during the day Continue supplemental oxygen Bronchodilators Antibiotics Repeat chest x-ray Time with Patient: Greater than 30
[2020-02-02 21:05] LABS: Glucose,Whole Blood 112 mg/dL (75-99)
[2020-02-02] MEDS: MONTELUKAST 10 MG TAB PO SCH (22:00)
[2020-02-02] MEDS: ALPRAZolam 0.25 MG TAB PO PRN (22:00)
[2020-02-03] MEDS: IPRATROPIUM-ALBUTEROL 3 ML NEB INHALATION PRN (00:08)
[2020-02-03 05:51] LABS: Glucose,Whole Blood 167 mg/dL (75-99)
[2020-02-03] MEDS: methylPREDNISolone SOD SUCCI 125 MG/2 ML VIAL IV SCH ×4 (06:08→21:59)
[2020-02-03] MEDS: INSULIN ASPART (NovoLOG) 100 UNIT/ML VIAL SQ SCH ×4 (06:09→22:00)
[2020-02-03] MEDS: BUDESONIDE 0.5 MG/2 ML NEBU INHALATION SCH ×2 (07:59→19:35)
[2020-02-03] MEDS: IPRATROPIUM-ALBUTEROL 3 ML NEB INHALATION SCH ×4 (07:59→19:35)
--- NOTE | 2020-02-03 08:52 | XR ---
EXAMINATION TYPE: XR chest 1V portable DATE OF EXAM: 02/03/2020 COMPARISON: 01/30/2020 HISTORY: Left lower no pneumonia TECHNIQUE: Single frontal view of the chest is obtained. FINDINGS: There is nearly resolved left basilar reticular opacity. Probable prominent epicardial fat pad on the right. Underlying COPD with biapical lucency. Diffuse osseous demineralization. Tortuous thoracic aorta. IMPRESSION: Nearly resolved left basilar reticular opacity. Underlying COPD.
[2020-02-03] MEDS: ASPIRIN 81 MG PO SCH (09:48)
[2020-02-03] MEDS: amLODIPine 10 MG TAB PO SCH (09:48)
[2020-02-03] MEDS: FAMOTIDINE 20 MG TAB PO SCH ×2 (09:48→21:59)
[2020-02-03] MEDS: HEPARIN SODIUM,PORCINE 5,000 UNIT/ML 1 ML VIAL SQ SCH ×2 (09:49→21:59)
[2020-02-03 11:43] LABS: Glucose,Whole Blood 132 mg/dL (75-99)
--- NOTE | 2020-02-03 12:56 | P.PN ---
Subjective patient with advanced COPD his admitted for presumed exacerbation patient only uses 2 L of vodka presently on 4 L of oxygen. We'll try to wean it off. Patient is still short of breath 107 and wheezing no significant air entry into bilateral lung nielsen patient on systemic steroids which will cut it down to 40 3 times a day, influenza testing was negative. Patient does feel little bit better today patient is on BiPAP at this time 02/02/2020 Patient is still requiring BiPAP on and off but his respiratory status did improve patient has some air entry today and bilateral lung nielsen. 02/03/2020 Patient is still requiring on and off BiPAP. Patient is on 3 L with 93% saturations. Patient also is feeling better with decreased he is still visibly short of breath. Constitutional: Denied any fatigue denied any fever. Cardio vascular: denied any chest pain, palpitations Gastrointestinal denied any nausea vomiting Pulmonary: as mentioned in HPI Neurologic denied any new focal deficits All inpatient medications were reviewed and appropriate changes in these medications as dictated in the interval history and assessment and plan. Objective - Vital Signs Vital signs: Vital Signs Temp 97.4 F L 02/03/20 09:47 Pulse 109 H 02/03/20 12:00 Resp 20 02/03/20 12:00 BP 134/92 02/03/20 12:00 Pulse Ox 93 L 02/03/20 12:00 Intake & Output 02/02/20 02/03/20 02/03/20 18:59 06:59 18:59 Intake Total 120 600 Output Total 400 1203 600 Balance -280 -603 -600 Weight 75.6 kg Intake: Oral 120 600 Output: Urine 400 1200 600 Stool 3 Other: Voiding Method Urinal Urinal # Voids 3 1 - Exam GENERAL: The patient is alert and oriented x3, not in any acute distress. Well developed, well nourished. HEENT: Pupils are round and equally reacting to light. EOMI. No scleral icterus. No conjunctival pallor. Normocephalic, atraumatic. No pharyngeal erythema. No thyromegaly. CARDIOVASCULAR: S1 and S2 present. No murmurs, rubs, or gallops. -PULMONARY: Chest is clear to auscultation,no wheezing and significantly decreased air entry which is actually better compared to yesterday ABDOMEN: Soft, nontender, nondistended, normoactive bowel sounds. No palpable organomegaly. MUSCULOSKELETAL: No joint swelling or deformity. EXTREMITIES: No cyanosis, clubbing, or pedal edema. NEUROLOGICAL: Gross neurological examination did not reveal any focal deficits. SKIN: No rashes. No petechiae - Labs CBC & Chem 7: 02/02/20 06:27 02/02/20 06:27 Labs: Abnormal Lab Results - Last 24 Hours (Table) 02/02/20 02/02/20 02/03/20 Range/Units 16:50 21:04 05:50 POC Glucose (mg/dL) 180 H 112 H 167 H (75-99) mg/dL 02/03/20 Range/Units 11:30 POC Glucose (mg/dL) 132 H (75-99) mg/dL Microbiology - Last 24 Hours (Table) 01/30/20 16:23 Blood Culture - Preliminary Blood No Growth after 72 hours 01/31/20 14:30 Gram Stain - Final Sputum Sputum Culture - Final Assessment and Plan Plan: -acute on chronic Respiratory failure second to COPD exacerbation: Continue with stroke stars and inhalational treatments.patient has advanced COPD. -Tracheobronchitis possibility of pneumonia is low: Patient is on levofloxacin which will be continued DVT prophylaxis: Subcutaneous heparin GI Prophylaxis: Pepcid
--- NOTE | 2020-02-03 13:41 | P.PN ---
Subjective Progress Note Date: 02/03/20 Principal diagnosis: Acute on chronic hypoxic respiratory failure, altered mental status/metabolic encephalopathy, acute COPD exacerbation, tracheobronchitis, 02/03/2020, patient seen and evaluated examined during the rounds labs reviewed medications reviewed, chest x-ray showed resolving left lower lobe pneumonia, patient could not use the BiPAP machine, remains on supplemental oxygen 02/02/2020, Patient is a 69-year-old male seen eval reexamined today patient has been on BiPAP each night and when necessary during the daytime setting for 15 with 40% oxygen denies any chest pain is still short of breath on minimal activity and exertion, labs reviewed medications reviewed, admitted chest x-ray positive for left basilar opacity possible pneumonia patient currently on a ntibiotics will get a follow-up chest x-ray This is a pleasant 69 years old male with past medical history of COPD, former smoker. He is patient of Dr. Garcia. Patient presents with respiratory distress and dyspnea associated with cough associated with yellow Phlegm since Wednesday about 4-5 days ago, he went to see his PCP we'll give him some therapy and he call him on Wednesday we'll start him on Tamiflu and steroids/prednisone. However over the last 1-2 days he kept getting worse so he decided to come to the hospital Patient is not steroid dependent. He denies chest pain. His no smoking currently. He had loose bowel movement yesterday but not today, no abdominal pain or nausea vomiting. No urinary complaints, no headache or weakness or confusion. Patient is afebrile Objective - Vital Signs Vital signs: Vital Signs Temp 97.4 F L 02/03/20 09:47 Pulse 109 H 02/03/20 12:00 Resp 20 02/03/20 12:00 BP 134/92 02/03/20 12:00 Pulse Ox 93 L 02/03/20 12:00 Intake & Output 02/02/20 02/03/20 02/03/20 18:59 06:59 18:59 Intake Total 120 600 Output Total 400 1203 600 Balance -280 -603 -600 Weight 75.6 kg Intake: Oral 120 600 Output: Urine 400 1200 600 Stool 3 Other: Voiding Method Urinal Urinal # Voids 3 1 - Exam GENERAL: The patient is alert and oriented x3, not in any acute distress. Well developed, well nourished. HEENT: Pupils are round and equally reacting to light. EOMI. No scleral icterus. No conjunctival pallor. Normocephalic, atraumatic. No pharyngeal erythema. No thyromegaly. CARDIOVASCULAR: S1 and S2 present. No murmurs, rubs, or gallops. -PULMONARY: Chest is clear to auscultation,no wheezing and significantly decreased air entry ABDOMEN: Soft, nontender, nondistended, normoactive bowel sounds. No palpable organomegaly. MUSCULOSKELETAL: No joint swelling or deformity. EXTREMITIES: No cyanosis, clubbing, or pedal edema. NEUROLOGICAL: Gross neurological examination did not reveal any focal deficits. SKIN: No rashes. No petechiae - Labs CBC & Chem 7: 02/02/20 06:27 02/02/20 06:27 Labs: Abnormal Lab Results - Last 24 Hours (Table) 02/02/20 02/02/20 02/03/20 Range/Units 16:50 21:04 05:50 POC Glucose (mg/dL) 180 H 112 H 167 H (75-99) mg/dL 02/03/20 Range/Units 11:30 POC Glucose (mg/dL) 132 H (75-99) mg/dL Microbiology - Last 24 Hours (Table) 01/30/20 16:23 Blood Culture - Preliminary Blood No Growth after 72 hours 01/31/20 14:30 Gram Stain - Final Sputum Sputum Culture - Final Assessment and Plan Assessment: Acute on chronic hypoxic and hypercapnic respiratory failure Acute COPD exacerbation Left lower lobe pneumonia Plan: Continue BiPAP each night and when necessary during the day, we'll try it tonight as well if continued to refuse will DC the BiPAP Continue supplemental oxygen Bronchodilators Antibiotics Repeat chest x-ray reviewed Time with Patient: Greater than 30
[2020-02-03 16:49] LABS: Glucose,Whole Blood 154 mg/dL (75-99)
[2020-02-03] MEDS: LEVOFLOXACIN 750 MG TAB PO SCH (17:25)
[2020-02-03 21:00] LABS: Glucose,Whole Blood 98 mg/dL (75-99)
[2020-02-03] MEDS: ALPRAZolam 0.25 MG TAB PO PRN (22:00)
[2020-02-03] MEDS: MONTELUKAST 10 MG TAB PO SCH (22:00)
[2020-02-04 05:59] LABS: Glucose,Whole Blood 185 mg/dL (75-99)
[2020-02-04] MEDS: methylPREDNISolone SOD SUCCI 125 MG/2 ML VIAL IV SCH ×4 (06:29→22:33)
[2020-02-04] MEDS: INSULIN ASPART (NovoLOG) 100 UNIT/ML VIAL SQ SCH ×4 (06:30→21:21)
[2020-02-04 06:56] LABS: Basophils % (A) 0 %; Eosinophils % (A) 0 %; HCT 48.6 % (39.0-53.0); HGB 15.4 gm/dL (13.0-17.5); Lymphocytes # (A) 0.7 k/uL (1.0-4.8); Lymphocytes % (A) 5 %; MCH 29.1 pg (25.0-35.0); MCHC 31.7 g/dL (31.0-37.0); MCV 91.7 fL (80.0-100.0); Mean Platelet Volume 7.5; Monocytes # (A) 1.1 k/uL (0-1.0); Monocytes % (A) 8 %; Neutrophils # (A) 11.6 k/uL (1.3-7.7); Neutrophils % (A) 85 %; Platelet Count 218 k/uL (150-450); RDW 12.3 % (11.5-15.5); WBC 13.6 k/uL (3.8-10.6)
[2020-02-04 07:06] LABS: African American GFR (CKD) >90 (>60 ml/min/1.73 sqM); Blood Urea Nitrogen 47 mg/dL (9-20); Calcium 8.8 mg/dL (8.4-10.2); Chloride 87 mmol/L (98-107); Glucose 172 mg/dL (74-99); Non-African American GFR(CKD) >90 (>60 ml/min/1.73 sqM); Potassium 4.9 mmol/L (3.5-5.1); Sodium 140 mmol/L (137-145)
[2020-02-04 07:12] LABS: Anion Gap 6 mmol/L
[2020-02-04 07:13] LABS: Carbon Dioxide 47 mmol/L (22-30)
[2020-02-04] MEDS: HEPARIN SODIUM,PORCINE 5,000 UNIT/ML 1 ML VIAL SQ SCH ×2 (08:19→21:21)
[2020-02-04] MEDS: ASPIRIN 81 MG PO SCH (08:19)
[2020-02-04] MEDS: FUROSEMIDE 20 MG TAB PO SCH (08:19)
[2020-02-04] MEDS: FAMOTIDINE 20 MG TAB PO SCH ×2 (08:19→21:20)
[2020-02-04] MEDS: amLODIPine 10 MG TAB PO SCH (08:20)
[2020-02-04] MEDS: IPRATROPIUM-ALBUTEROL 3 ML NEB INHALATION SCH ×4 (08:22→18:35)
[2020-02-04] MEDS: BUDESONIDE 0.5 MG/2 ML NEBU INHALATION SCH ×2 (08:22→18:35)
--- NOTE | 2020-02-04 10:24 | P.PN ---
Subjective patient with advanced COPD his admitted for presumed exacerbation patient only uses 2 L of vodka presently on 4 L of oxygen. We'll try to wean it off. Patient is still short of breath 107 and wheezing no significant air entry into bilateral lung nielsen patient on systemic steroids which will cut it down to 40 3 times a day, influenza testing was negative. Patient does feel little bit better today patient is on BiPAP at this time 02/02/2020 Patient is still requiring BiPAP on and off but his respiratory status did improve patient has some air entry today and bilateral lung nielsen. 02/03/2020 Patient is still requiring on and off BiPAP. Patient is on 3 L with 93% saturations. Patient also is feeling better with decreased he is still visibly short of breath. 02/04/2020 Patient refused to wear BiPAP last night because of which patient became more confused appears to have had CO2 narcosis more short of breath patient Robert entry into bilateral lung nielsen is bit worse. Patient is pleasant and BiPAP Constitutional: Denied any fatigue denied any fever. Cardio vascular: denied any chest pain, palpitations Gastrointestinal denied any nausea vomiting Pulmonary: as mentioned in HPI Neurologic denied any new focal deficits All inpatient medications were reviewed and appropriate changes in these medications as dictated in the interval history and assessment and plan. Objective - Vital Signs Vital signs: Vital Signs Temp 97.6 F 02/04/20 08:20 Pulse 122 H 02/04/20 08:44 Resp 22 02/04/20 08:20 BP 132/73 02/04/20 08:20 Pulse Ox 96 02/04/20 08:20 Intake & Output 02/03/20 02/04/20 02/04/20 18:59 06:59 18:59 Intake Total 320 240 Output Total 1300 3 Balance -1300 317 240 Weight 74.3 kg Intake: Oral 320 240 Output: Urine 1300 Stool 3 Other: Voiding Method Urinal Urinal # Voids 1 2 - Exam GENERAL: The patient is alert and oriented x3, not in any acute distress. Well developed, well nourished. On BiPAP HEENT: Pupils are round and equally reacting to light. EOMI. No scleral icterus. No conjunctival pallor. Normocephalic, atraumatic. No pharyngeal erythema. No thyromegaly. CARDIOVASCULAR: S1 and S2 present. No murmurs, rubs, or gallops. -PULMONARY: Patient has significantly decreased air entry bit worse compared to yesterday ABDOMEN: Soft, nontender, nondistended, normoactive bowel sounds. No palpable organomegaly. MUSCULOSKELETAL: No joint swelling or deformity. EXTREMITIES: No cyanosis, clubbing, or pedal edema. NEUROLOGICAL: Gross neurological examination did not reveal any focal deficits. SKIN: No rashes. No petechiae - Labs CBC & Chem 7: 02/04/20 06:08 02/04/20 06:08 Labs: Abnormal Lab Results - Last 24 Hours (Table) 02/03/20 02/03/20 02/04/20 Range/Units 11:30 16:47 05:58 WBC (3.8-10.6) k/uL Neutrophils # (1.3-7.7) k/uL Lymphocytes # (1.0-4.8) k/uL Monocytes # (0-1.0) k/uL Chloride (98-107) mmol/L Carbon Dioxide (22-30) mmol/L BUN (9-20) mg/dL Glucose (74-99) mg/dL POC Glucose (mg/dL) 132 H 154 H 185 H (75-99) mg/dL 02/04/20 02/04/20 Range/Units 06:08 06:08 WBC 13.6 H (3.8-10.6) k/uL Neutrophils # 11.6 H (1.3-7.7) k/uL Lymphocytes # 0.7 L (1.0-4.8) k/uL Monocytes # 1.1 H (0-1.0) k/uL Chloride 87 L (98-107) mmol/L Carbon Dioxide 47 H* (22-30) mmol/L BUN 47 H (9-20) mg/dL Glucose 172 H (74-99) mg/dL POC Glucose (mg/dL) (75-99) mg/dL Microbiology - Last 24 Hours (Table) 01/30/20 16:23 Blood Culture - Preliminary Blood No Growth after 96 hours Assessment and Plan Plan: -acute on chronic Respiratory failure second to COPD exacerbation: Continue with stroke stars and inhalational treatments.patient has advanced COPD. patient is on BiPAP at nighttime patient has severe COPD exacerbation patient is more confused today and more short of breath. -Metabolic encephalopathy from CO2 narcosis continue with BiPAP -Tracheobronchitis possibility of pneumonia is low: Patient is on levofloxacin which will be continued DVT prophylaxis: Subcutaneous heparin GI Prophylaxis: Pepcid
[2020-02-04 11:36] LABS: Glucose,Whole Blood 117 mg/dL (75-99)
[2020-02-04] MEDS: ALPRAZolam 0.25 MG TAB PO PRN ×2 (11:56→17:20)
--- NOTE | 2020-02-04 12:10 | P.PN ---
Subjective Progress Note Date: 02/04/20 Principal diagnosis: Acute on chronic hypoxic respiratory failure, altered mental status/metabolic encephalopathy, acute COPD exacerbation, tracheobronchitis, 02/04/2020, patient seen eval examined during the rounds labs reviewed medications reviewed, patient remain on supplemental oxygen 3 L oxygen saturation is low 90s, still very short of breath, he has been refusing BiPAP m achine 02/03/2020, patient seen and evaluated examined during the rounds labs reviewed medications reviewed, chest x-ray showed resolving left lower lobe pneumonia, patient could not use the BiPAP machine, remains on supplemental oxygen 02/02/2020, Patient is a 69-year-old male seen eval reexamined today patient has been on BiPAP each night and when necessary during the daytime setting for 05/04 with 40% oxygen denies any chest pain is still short of breath on minimal activity and exertion, labs reviewed medications reviewed, admitted chest x-ray positive for left basilar opacity possible pneumonia patient currently on antibiotics will get a follow-up chest x-ray This is a pleasant 69 years old male with past medical history of COPD, former smoker. He is patient of Dr. Garcia. Patient presents with respiratory distress and dyspnea associated with cough associated with yellow Phlegm since Wednesday about 4-5 days ago, he went to see his PCP we'll give him some therapy and he call him on Wednesday we'll start him on Tamiflu and steroids/prednisone. However over the last 1-2 days he kept getting worse so he decided to come to the hospital Patient is not steroid dependent. He denies chest pain. His no smoking currently. He had loose bowel movement yesterday but not today, no abdominal pain or nausea vomiting. No urinary complaints, no headache or weakness or confusion. Patient is afebrile Objective - Vital Signs Vital signs: Vital Signs Temp 97.6 F 02/04/20 08:20 Pulse 118 H 02/04/20 11:46 Resp 24 02/04/20 11:35 BP 157/95 02/04/20 11:35 Pulse Ox 97 02/04/20 11:35 Intake & Output 02/03/20 02/04/20 02/04/20 18:59 06:59 18:59 Intake Total 320 240 Output Total 1300 3 325 Balance -1300 317 -85 Weight 74.3 kg Intake: Oral 320 240 Output: Urine 1300 325 Stool 3 Other: Voiding Method Urinal Urinal Urinal # Voids 1 2 1 - Exam GENERAL: The patient is alert and oriented x3, not in any acute distress. Well developed, well nourished. HEENT: Pupils are round and equally reacting to light. EOMI. No scleral icterus. No conjunctival pallor. Normocephalic, atraumatic. No pharyngeal erythema. No thyromegaly. CARDIOVASCULAR: S1 and S2 present. No murmurs, rubs, or gallops. -PULMONARY: Chest is clear to auscultation,no wheezing and significantly decreased air entry ABDOMEN: Soft, nontender, nondistended, normoactive bowel sounds. No palpable organomegaly. MUSCULOSKELETAL: No joint swelling or deformity. EXTREMITIES: No cyanosis, clubbing, or pedal edema. NEUROLOGICAL: Gross neurological examination did not reveal any focal deficits. SKIN: No rashes. No petechiae - Labs CBC & Chem 7: 02/04/20 06:08 02/04/20 06:08 Labs: Abnormal Lab Results - Last 24 Hours (Table) 02/03/20 02/04/20 02/04/20 Range/Units 16:47 05:58 06:08 WBC 13.6 H (3.8-10.6) k/uL Neutrophils # 11.6 H (1.3-7.7) k/uL Lymphocytes # 0.7 L (1.0-4.8) k/uL Monocytes # 1.1 H (0-1.0) k/uL Chloride (98-107) mmol/L Carbon Dioxide (22-30) mmol/L BUN (9-20) mg/dL Glucose (74-99) mg/dL POC Glucose (mg/dL) 154 H 185 H (75-99) mg/dL 02/04/20 02/04/20 Range/Units 06:08 11:34 WBC (3.8-10.6) k/uL Neutrophils # (1.3-7.7) k/uL Lymphocytes # (1.0-4.8) k/uL Monocytes # (0-1.0) k/uL Chloride 87 L (98-107) mmol/L Carbon Dioxide 47 H* (22-30) mmol/L BUN 47 H (9-20) mg/dL Glucose 172 H (74-99) mg/dL POC Glucose (mg/dL) 117 H (75-99) mg/dL Microbiology - Last 24 Hours (Table) 01/30/20 16:23 Blood Culture - Preliminary Blood No Growth after 96 hours Assessment and Plan Assessment: Acute on chronic hypoxic and hypercapnic respiratory failure Acute COPD exacerbation Left lower lobe pneumonia Plan: Continue BiPAP each night and when necessary during the day, we'll try it tonight as well if continued to refuse will DC the BiPAP Continue supplemental oxygen Bronchodilators Antibiotics Repeat chest x-ray reviewed Time with Patient: Greater than 30
[2020-02-04 16:41] LABS: Glucose,Whole Blood 144 mg/dL (75-99)
[2020-02-04] MEDS: LEVOFLOXACIN 750 MG TAB PO SCH (17:20)
[2020-02-04 20:52] LABS: Glucose,Whole Blood 210 mg/dL (75-99)
[2020-02-04] MEDS: MONTELUKAST 10 MG TAB PO SCH (21:20)
[2020-02-04 21:45] VITALS: TEMP 97.7
[2020-02-04] MEDS ORDERED: LORazepam 2 MG/ML INJ IV STA ×2 (22:01→23:32)
[2020-02-05 00:12] VITALS: BP 154/89; PULSE 111; RESP 32
--- NOTE | 2020-02-06 14:31 | P.DS ---
Providers Date of admission: 01/30/20 17:58 Attending physician: Daniel Stanford Consults: 01/31/20 10:53 Consult Physician Routine Consulting Provider: Tomi Watts Consult Reason/Comments: COPD exacerbation Do you want consulting provider notified?: Yes Primary care physician: Brayan [facility] Course: patient underwent into respiratory failure around 11 PM 02/04/2020, patient didn't have any significant improvement in spite of aggressive measures because of which family wanted him to be hospice patient was subsequently made hospice the following day on 02/05/2020 early in the morning please refer to nursing documentation for exact time of . Plan - Discharge Summary New Discharge Prescriptions: No Action Oseltamivir [Tamiflu] 75 mg PO BID Cetirizine HCl 10 mg PO DAILY Budesonide/Formoterol Fumarate [Symbicort 160-4.5 Mcg Inhaler] 2 puff INHALATION RT-BID Budesonide [Pulmicort] 0.5 mg INHALATION RT-BID PRN PRN Reason: Shortness Of Breath Albuterol Sulfate [Ventolin HFA] 2 puff INHALATION RT-Q6H predniSONE See Taper PO DAILY amLODIPine [Norvasc] 10 mg PO DAILY Montelukast [Singulair] 10 mg PO HS Aspirin EC [Ecotrin Low Dose] 81 mg PO DAILY ALPRAZolam [Xanax] 0.5 mg PO TID PRN PRN Reason: Anxiety Omeprazole [PriLOSEC] 40 mg PO DAILY Omeprazole 20 mg PO HS Furosemide [Lasix] 20 mg PO SUMOWEFR Discharge Medication List ALPRAZolam [Xanax] 0.5 mg PO TID PRN 01/30/20 [History] Albuterol Sulfate [Ventolin HFA] 2 puff INHALATION RT-Q6H 01/30/20 [History] Aspirin EC [Ecotrin Low Dose] 81 mg PO DAILY 01/30/20 [History] Budesonide [Pulmicort] 0.5 mg INHALATION RT-BID PRN 01/30/20 [History] Budesonide/Formoterol Fumarate [Symbicort 160-4.5 Mcg Inhaler] 2 puff INHALATION RT-BID 01/30/20 [History] Cetirizine HCl 10 mg PO DAILY 01/30/20 [History] Furosemide [Lasix] 20 mg PO SUMOWEFR 01/30/20 [History] Montelukast [Singulair] 10 mg PO HS 01/30/20 [History] Omeprazole 20 mg PO HS 01/30/20 [History] Omeprazole [PriLOSEC] 40 mg PO DAILY 01/30/20 [History] Oseltamivir [Tamiflu] 75 mg PO BID 01/30/20 [History] amLODIPine [Norvasc] 10 mg PO DAILY 01/30/20 [History] predniSONE See Taper PO DAILY 01/30/20 [History] Follow up Appointment(s)/Referral(s): Brayan Garcia DO [Primary Care Provider] - 1-2 days Tomi Watts MD [Family Provider] - 1 Week Patient Instructions/Handouts: Anxiety (ED), Pneumonia (DC), Chronic Lung Disease and Infection Prevention (DC) Activity/Diet/Wound Care/Special Instructions: Hospital Bed - order sent to [facility] D[facility] Patient requires hospital bed upon discharge secondary to need to keep head of bed elevated >30 degrees secondary to orthopnea from COPD Discharge Disposition: DISCH TO HOSPICE MED FACILTY - Preliminary Cause of Preliminary Cause of : COPD
--- NOTE | 2020-02-09 09:37 | CDI ---
Documentation Clarification Form Date: 02/09/20 From: Isabel Moreira Phone: If you have a question about this query, please contact Ayana Taylor, .Net Developer at [phone] between 8am and 5pm. Admit Date: 01/30/20 Discharge Date:02/05/20 Patient Name: Alberto Robles Visit Number: [id number] ATTENTION: The Clinical Documentation Specialists (CDI) and [facility] Coding Staff appreciate your assistance in clarifying documentation. Please respond to the clarification below the line at the bottom and electronically sign. The CDI & [facility] Coding staff will review the response and follow-up if needed. Please note: Queries are made part of the Legal Health Record. If you have any questions, please contact the author of this message via ITS. Dear Dr. Watts Severe asthma with COPD with acute exacerbation is documented in your consult note and 01/31 progress note. History/risk factors: COPD, chronic respiratory failure Clinical Indicators: Shortness of breath, expiratory wheezing, worsening difficulty breathing Radiology: CXR 01/29: Reticular left basilar opacity. Correlate for pneumonia. CXR 02/02: Nearly resolved left basilar reticular opacity. Underlying COPD. Vital Signs: T. 99.5, P. 109, R. 30, BP 154/70, Pulse Ox. 75 Treatment: Medication: Duoneb inhalation, pulmicort inhalation, Atrovent Nebulized, IV Solu-Medrol, O2 by nasal cannula 2 - 5 L/min, BiPap In your professional opinion, can you please further specify the following, if known? With Acute Exacerbation Status asthmaticus Acute lower respiratory infection Other, please specify ___ Unable to determine Severity Mild intermittent Mild persistent Moderate persistent Severe persistent Other, please specify ____ Unable to determine Form or Type Cough variant Childhood Exercise induced bronchospasm Extrinsic allergic Idiosyncratic Intrinsic nonallergic Late-onset Mixed Other, please specify____ Unable to determine MTDD
--- NOTE | 2020-02-13 13:11 | CDI ---
Documentation Clarification Form Date: 02/13/20 From: Isabel Moreira Phone: If you have a question about this query, please contact Ayana Taylor, Rehabilitation Attendant at [phone] between 8am and 5pm. Admit Date: 01/30/20 Discharge Date:02/05/20 Patient Name: Alberto Mcknight Visit Number: [id number] ATTENTION: The Clinical Documentation Specialists (CDI) and [facility] Coding Staff appreciate your assistance in clarifying documentation. Please respond to the clarification below the line at the bottom and electronically sign. The CDI & [facility] Coding staff will review the response and follow-up if needed. Please note: Queries are made part of the Legal Health Record. If you have any questions, please contact the author of this message via ITS. Dear Dr. Watts Thank you for signing the previous query. Please document a response before signing this query. Severe asthma with COPD with acute exacerbation is documented in your consult note and 01/31 progress note. History/risk factors: COPD, chronic respiratory failure Clinical Indicators: Shortness of breath, expiratory wheezing, worsening difficulty breathing Radiology: CXR 01/29: Reticular left basilar opacity. Correlate for pneumonia. CXR 02/02: Nearly resolved left basilar reticular opacity. Underlying COPD. Vital Signs: T. 99.5, P. 109, R. 30, BP 154/70, Pulse Ox. 75 Treatment: Medication: Duoneb inhalation, pulmicort inhalation, Atrovent Nebulized, IV Solu-Medrol, O2 by nasal cannula 2 - 5 L/min, BiPap In your professional opinion, can you please further specify the following, if known? With Acute Exacerbation Status asthmaticus Acute lower respiratory infection Other, please specify ___ Unable to determine Severity Mild intermittent Mild persistent Moderate persistent Severe persistent Other, please specify ____ Unable to determine Form or Type Cough variant Childhood Exercise induced bronchospasm Extrinsic allergic Idiosyncratic Intrinsic nonallergic Late-onset Mixed Other, please specify____ Unable to determine MTDD
== END 2020-02-05 00:29 | disposition hospice, inpatient (51) | DRG 190 ==
LOC: EC 15:32 → 3SCARD 17:58
PROVIDERS: ADMIT Hospitalist; ATTEND Hospitalist
PROC: 5A09357 Assistance with Respiratory Ventilation, Less than 24 Consecutive Hours, Continuous Positive Airway Pressure (ICD-10-PCS; principal; 2020-01-30)
DX: J44.1 Chronic obstructive pulmonary disease with (acute) exacerbation (principal); G93.41 Metabolic encephalopathy; J18.9 Pneumonia, unspecified organism; J96.21 Acute and chronic respiratory failure with hypoxia; J96.22 Acute and chronic respiratory failure with hypercapnia; E87.2 Acidosis; J45.51 Severe persistent asthma with (acute) exacerbation; J44.0 Chronic obstructive pulmonary disease with (acute) lower respiratory infection; I10 Essential (primary) hypertension; Z66 Do not resuscitate; Z79.51 Long term (current) use of inhaled steroids; Z79.82 Long term (current) use of aspirin; Z79.899 Other long term (current) drug therapy; Z87.891 Personal history of nicotine dependence; Z90.49 Acquired absence of other specified parts of digestive tract; Z88.0 Allergy status to penicillin
CPT/HCPCS: 36415; 36600; 71045; 80048; 80053; 81001; 82805; 83605; 83735; 84484; 85025; 85027; 85610; 85730; 87040; 87070; 87205; 87502; 93005; 94640; 94660; 94760; 96361; 96365; 96366; 96368; 96375; 96376; 99291

== ENCOUNTER 2020-02-05 00:35 | Inpatient (IN) | payer MEDICAID ==
[2020-02-05] MEDS ORDERED: LORazepam 2 MG/ML INJ IV PRN (00:44)
[2020-02-05] MEDS ORDERED: MORPHINE SULFATE 2 MG/ML SYRINGE IV PRN (00:44)
[2020-02-05] MEDS ORDERED: MORPHINE SULFATE 4 MG/ML SYRINGE IVP ONE (00:44)
[2020-02-05] MEDS ORDERED: ATROPINE OPHTH SOLN 1% 5ML BTL SUBLINGUAL PRN (00:44)
[2020-02-05] MEDS ORDERED: ACETAMINOPHEN SUPPOSITORY 650 MG SUPP RECTAL PRN (00:44)
[2020-02-05] MEDS ORDERED: ONDANSETRON 4 MG/2 ML VIAL IVP PRN (00:44)
[2020-02-05] MEDS ORDERED: MORPHINE SULFATE (100 MG/2 ML) 100 MG in SODIUM CHLORIDE 0.9% 100 ML IV SCH (00:45)
[2020-02-05] MEDS ORDERED: SCOPOLAMINE 1.5MG/72HR PATCH TRANSDERM SCH (00:45)
[2020-02-05] MEDS ORDERED: BISACODYL 10 MG SUPP RECTAL PRN (00:47)
[2020-02-05 01:42] VITALS: BP 154/89; PULSE 111; TEMP 97.7
[2020-02-05 01:47] VITALS: RESP 24
--- NOTE | 2020-02-06 14:34 | P.HPIM ---
History of Present Illness H&P Date: 02/05/20 please refer to the documentation a progress note from the same hospitalization but different MRN number Past Medical History Past Medical History: Asthma, COPD History of Any Multi-Drug Resistant Organisms: None Reported Past Surgical History: Cholecystectomy Past Psychological History: No Psychological Hx Reported Smoking Status: Former smoker Past Alcohol Use History: None Reported Past Drug Use History: None Reported Medications and Allergies Home Medications Medication Instructions Recorded Confirmed Type ALPRAZolam [Xanax] 0.5 mg PO TID PRN 01/30/20 02/05/20 History Albuterol Sulfate [Ventolin HFA] 2 puff INHALATION RT-Q6H 01/30/20 02/05/20 Hi story Aspirin EC [Ecotrin Low Dose] 81 mg PO DAILY 01/30/20 02/05/20 History Budesonide [Pulmicort] 0.5 mg INHALATION RT-BID PRN 01/30/20 02/05/20 History Budesonide/Formoterol Fumarate 2 puff INHALATION RT-BID 01/30/20 02/05/20 History [Symbicort 160-4.5 Mcg Inhaler] Cetirizine HCl 10 mg PO DAILY 01/30/20 02/05/20 History Furosemide [Lasix] 20 mg PO SUMOWEFR 01/30/20 02/05/20 History Montelukast [Singulair] 10 mg PO HS 01/30/20 02/05/20 History Omeprazole 20 mg PO HS 01/30/20 02/05/20 History Omeprazole [PriLOSEC] 40 mg PO DAILY 01/30/20 02/05/20 History Oseltamivir [Tamiflu] 75 mg PO BID 01/30/20 02/05/20 History amLODIPine [Norvasc] 10 mg PO DAILY 01/30/20 02/05/20 History predniSONE See Taper PO DAILY 01/30/20 02/05/20 History Allergies Allergy/AdvReac Type Severity Reaction Status Date / Time Penicillins Allergy Rash/Hives Verified 01/30/20 19:16 Thrombosis Risk Factor Assmnt - Choose All That Apply Any of the Below Risk Factors Present?: Yes Each Factor Represents 1 point: Abnormal pulmonary function (COPD) Other Risk Factors: Yes Each Risk Factor Represents 2 Points: Age 61-74 years Other congenital or acquired thrombophilia - If yes, enter type in comment: No Thrombosis Risk Factor Assessment Total Risk Factor Score: 3 Thrombosis Risk Factor Assessment Level: Moderate Risk
--- NOTE | 2020-02-06 14:35 | P.DS ---
Providers Date of admission: 02/05/20 00:35 Attending physician: Daniel Stanford [facility] Course: please refer to the documentation a progress note from the same hospitalization but different tomorrow number Plan - Discharge Summary Discharge Rx Participant: No New Discharge Prescriptions: No Action Oseltamivir [Tamiflu] 75 mg PO BID Cetirizine HCl 10 mg PO DAILY Budesonide/Formoterol Fumarate [Symbicort 160-4.5 Mcg Inhaler] 2 puff INHALATION RT-BID Budesonide [Pulmicort] 0.5 mg INHALATION RT-BID PRN PRN Reason: Shortness Of Breath Albuterol Sulfate [Ventolin HFA] 2 puff INHALATION RT-Q6H predniSONE See Taper PO DAILY amLODIPine [Norvasc] 10 mg PO DAILY Montelukast [Singulair] 10 mg PO HS Aspirin EC [Ecotrin Low Dose] 81 mg PO DAILY ALPRAZolam [Xanax] 0.5 mg PO TID PRN PRN Reason: Anxiety Omeprazole [PriLOSEC] 40 mg PO DAILY Omeprazole 20 mg PO HS Furosemide [Lasix] 20 mg PO SUMOWEFR Discharge Medication List ALPRAZolam [Xanax] 0.5 mg PO TID PRN 01/30/20 [History] Albuterol Sulfate [Ventolin HFA] 2 puff INHALATION RT-Q6H 01/30/20 [History] Aspirin EC [Ecotrin Low Dose] 81 mg PO DAILY 01/30/20 [History] Budesonide [Pulmicort] 0.5 mg INHALATION RT-BID PRN 01/30/20 [History] Budesonide/Formoterol Fumarate [Symbicort 160-4.5 Mcg Inhaler] 2 puff INHALATION RT-BID 01/30/20 [History] Cetirizine HCl 10 mg PO DAILY 01/30/20 [History] Furosemide [Lasix] 20 mg PO SUMOWEFR 01/30/20 [History] Montelukast [Singulair] 10 mg PO HS 01/30/20 [History] Omeprazole 20 mg PO HS 01/30/20 [History] Omeprazole [PriLOSEC] 40 mg PO DAILY 01/30/20 [History] Oseltamivir [Tamiflu] 75 mg PO BID 01/30/20 [History] amLODIPine [Norvasc] 10 mg PO DAILY 01/30/20 [History] predniSONE See Taper PO DAILY 01/30/20 [History] Discharge Disposition: - Preliminary Cause of Preliminary Cause of : COPD
[2020-02-07 11:18] LABS: Glucose,Whole Blood 169 mg/dL (75-99)
== END 2020-02-05 09:29 | disposition expired | DRG 951 ==
LOC: 3SCARD 00:35
PROVIDERS: ADMIT Hospitalist; ATTEND Hospitalist
DX: Z51.5 Encounter for palliative care (principal); J44.9 Chronic obstructive pulmonary disease, unspecified; Z79.51 Long term (current) use of inhaled steroids; Z79.82 Long term (current) use of aspirin; Z79.899 Other long term (current) drug therapy; Z87.891 Personal history of nicotine dependence; Z88.0 Allergy status to penicillin